=== PATIENT | female | born 1970 | race Caucasian/White ===

== ENCOUNTER → 2016-04-12 | Outpatient (CLI) | payer BC ==
[~2016-04-12] MED LIST: ADVAIR 500-501 EACH INH; CALCIUM500 M1 PO; CLARITIN10 MG PO; MAGNESIUM200 MG PO; NORCO 10-325 T1 EACH PO; SPIRIVA18 MCG INH
== END ==
LOC: CT 12:52
DX: J32.9 Chronic sinusitis, unspecified (principal); J34.2 Deviated nasal septum; R51 Headache; R09.82 Postnasal drip; R09.81 Nasal congestion; Z88.5 Allergy status to narcotic agent
CPT/HCPCS: 70486